=== PATIENT | male | born 1960 | race Caucasian/White ===

== ENCOUNTER 2021-05-16 09:08 | Emergency (ER) | payer OTHER ==
[~2021-05-16] VITALS: Ht 170.2 cm; Wt 75.0 kg
[2021-05-16] MEDS ORDERED: methocarbamoL 500 MG TAB PO ONE (09:45)
[2021-05-16] MEDS ORDERED: LIDOCAINE 5% (LIDODERM) PATCH TD ONE (09:45)
[2021-05-16] MEDS ORDERED: PERCOCET 5MG/325MG TAB PO ONE (09:45)
[2021-05-16] MEDS ORDERED: PERC5TAB12 PO (10:40)
[2021-05-16 12:42] LABS: BASO % 0.4 % (0.0-1.0); EOS # 0.2 10^3/uL (0.0-0.5); EOS % 2.2 % (0.0-3.0); HEMATOCRIT 47.5 % (42.0-52.0); LYMPH # 2.6 10^3/uL (1.5-5.0); LYMPH % 32.6 % (24.0-44.0); MEAN CORPUSCULAR HEMOGLOBIN 33.4 pg (27.0-33.0); MEAN CORPUSCULAR HGB CONC 33.7 g/dl (32.0-36.5); MEAN CORPUSCULAR VOLUME 99.2 fl (80.0-96.0); MONO # 0.6 10^3/uL (0.0-0.8); MONO % 7.5 % (2.0-8.0); NEUTROPHILS # 4.6 10^3/uL (1.5-8.5); NEUTROPHILS % 57.1 % (36.0-66.0); PLATELET COUNT, AUTOMATED 201 10^3/uL (150-450); RED BLOOD COUNT 4.79 10^6/uL (4.30-6.10)
[2021-05-16] MEDS ORDERED: ISOVUE-370 76% 100ML VIAL As Ordered ONE (12:50)
[2021-05-16 13:03] LABS: ALBUMIN 4.1 GM/DL (3.2-5.2); ALT/SGPT 47 U/L (12-78); BILIRUBIN,DIRECT < 0.1 MG/DL (0.0-0.2); BILIRUBIN,TOTAL 0.6 MG/DL (0.2-1.0); LIPASE 37 U/L (73-393); TOTAL PROTEIN 7.7 GM/DL (6.4-8.2)
[2021-05-16 14:11] VITALS: BP 140/72
[2021-05-16] MEDS ORDERED: **NOTE PATIENT COMMENT** MISC XX ONE (21:00)
== END 2021-05-16 14:14 | disposition home or self-care (01) ==
LOC: M ED 09:08
DX: M54.50 Low back pain, unspecified (principal); K40.90 Unilateral inguinal hernia, without obstruction or gangrene, not specified as recurrent
CPT/HCPCS: 36415; 74160; 76857; 76870; 80047; 80076; 83605; 83690; 85025; 93976; 99284; Q9967

== ENCOUNTER → 2021-05-26 | Outpatient (CLI) | payer OTHER ==
[~2021-05-26] MED LIST: PERC5TAB12 PO
== END ==
LOC: M SOG 10:01
PROVIDERS: ATTEND Orthopaedic Surgery
DX: M54.50 Low back pain, unspecified (principal); M25.78 Osteophyte, vertebrae; M51.36 Other intervertebral disc degeneration, lumbar region

== ENCOUNTER → 2021-09-03 | Outpatient (CLI) | payer OTHER | LOC: M LABSMTC 11:59 | PROVIDERS: ATTEND Anesthesiology | DX: Z01.812 Encounter for preprocedural laboratory examination (principal); Z20.822 Contact with and (suspected) exposure to COVID-19 ==

== ENCOUNTER 2021-09-07 06:02 | Day surgery (SDC) | payer OTHER ==
[~2021-09-07] VITALS: Ht 167.6 cm; Wt 69.9 kg
[2021-09-07] MEDS ORDERED: LR 1,000 ML IV SCH ×2 (06:40→11:15)
[2021-09-07] MEDS ORDERED: BUPIVACAINE HCL 0.25% 30ML VIAL As Ordered ONE ×2 (06:50→07:10)
[2021-09-07] MEDS ORDERED: fentaNYL 100 MCG/2 ML INJECTION As Ordered ONE ×3 (08:07→10:03)
[2021-09-07] MEDS ORDERED: ONDANSETRON 4MG/2ML VIAL As Ordered ONE (08:07)
[2021-09-07] MEDS ORDERED: LIDOCAINE 2% 100MG/5ML SDV (FOR ANES.) As Ordered ONE (08:07)
[2021-09-07] MEDS ORDERED: MIDAZOLAM INJ 2MG/2ML VIAL (J2250 PER 1MG) As Ordered ONE (08:07)
[2021-09-07] MEDS ORDERED: dexameTHASONE 4 MG/ML 1ML VIAL (J1100 PER 1MG) As Ordered ONE (08:07)
[2021-09-07] MEDS ORDERED: ROCURONIUM BROMIDE 50 MG/5 ML VIAL As Ordered ONE ×2 (08:07→09:24)
[2021-09-07] MEDS ORDERED: SUGAMMADEX SODIUM 500 MG/5 ML VIAL (BRIDION) As Ordered ONE (08:21)
[2021-09-07] MEDS ORDERED: KETOROLAC 60MG 2ML VIAL As Ordered ONE (08:25)
[2021-09-07] MEDS ORDERED: ACETAMINOPHEN 1000MG 100ML IV BTL (OFIRMEV) (J0131 PER 10MG) As Ordered ONE (08:31)
[2021-09-07] MEDS ORDERED: hydrALAZINE 20MG/ML 1ML VIAL (J0360 PER 20MG) As Ordered ONE (08:54)
[2021-09-07] MEDS ORDERED: LABETALOL 100MG/20ML VIAL As Ordered ONE (09:28)
[2021-09-07] MEDS ORDERED: oxyCODONE 5MG TAB PO PRN (11:15)
[2021-09-07] MEDS ORDERED: ALBUTEROL SULFATE 2.5 MG/0.5 ML INH NEB SOLN INH ONE (11:15)
[2021-09-07] MEDS ORDERED: ONDANSETRON 4MG/2ML VIAL IV PRN (11:15)
[2021-09-07] MEDS ORDERED: MORPHINE 2 MG/ML 1ML VIAL IV PRN (11:15)
[2021-09-07] MEDS ORDERED: fentaNYL 100 MCG/2 ML INJECTION IV PRN (11:15)
[2021-09-07] MEDS ORDERED: NAPROXEN 250 MG TAB PO PRN (11:35)
[2021-09-07] MEDS ORDERED: ACETAMINOPHEN TAB 650MG DOSE (2X325MG) PO PRN (11:35)
[2021-09-07] MEDS ORDERED: NORCO, ANEXSIA 5/325MG TABLET (HYDROcodone/ACETAMINOPHEN) PO PRN (11:40)
[2021-09-07 13:00] VITALS: BP 120/79
[2021-09-07] MEDS ORDERED: HYDR-3715 PO (17:10)
== END 2021-09-07 13:08 | disposition home or self-care (01) ==
LOC: M SDC 06:02
PROVIDERS: ATTEND Surgery
DX: K40.30 Unilateral inguinal hernia, with obstruction, without gangrene, not specified as recurrent (principal); F17.210 Nicotine dependence, cigarettes, uncomplicated
CPT/HCPCS: 49650; C1781; J0131; J0360; J1100; J1885; J2250; J2405; J3010; S2900

== ENCOUNTER → 2022-01-11 | Outpatient (CLI) | payer OTHER ==
[~2022-01-11] MED LIST changes: +HYDR-3715 PO
== END ==
LOC: M RAD 14:35
PROVIDERS: ATTEND Surgery
DX: R19.04 Left lower quadrant abdominal swelling, mass and lump (principal)

== ENCOUNTER → 2022-06-04 | Outpatient (CLI) | payer OTHER | LOC: M RAD 14:20 | PROVIDERS: ATTEND Surgery | DX: R19.04 Left lower quadrant abdominal swelling, mass and lump (principal) ==